=== PATIENT | male | born 1945 | race Caucasian/White ===

== ENCOUNTER 2017-08-19 06:57 | Day surgery (SDC) | payer OTHER, SELFPAY ==
--- NOTE | 2017-08-19 | PATH_ITS ---
[facility] Accession Number: [id number] . 01 Material submitted: . TRANSVERSE COLON POLYP AT 60 . 02 Diagnosis: Biopsy Polyp Transverse Colon at 60 cm: Sessile serrated adenoma involving both biopsy fragments. MRV/08/22/2017 . 02 Electronically signed: . Dale Patterson MD, Pathologist NPI- [id number] . 01 Gross description: . TRANSVERSE COLON POLYP AT 60: Received in formalin are 2 fragment(s) of pickering, soft tissue measuring 0.4 x 0.3 x 0.3 cm to 0.5 x 0.4 x 0.2 cm submitted entirely in 1 cassette(s) /TRC /TRC . 02 Pathologist provided ICD-10: D12.3 . 02 CPT . 106909 Performed at: 01 [facility] [address] [id number] MD Juanjose Thompson MD Phone: [phone] Performed at: 02 [facility] [address] [place], [place] [id number] MD Jose Luis Hazel MD Phone: [phone]
[2017-08-19 07:15] VITALS: BP 141/93; PULSE 79; RESP 16; TEMP 36.4; O2SAT 93; BMI 28.5
[2017-08-19] MEDS: SODIUM CHLORIDE 0.9% 1,000 ML 200 ML IV (07:32)
--- NOTE | 2017-08-19 07:39 | PM.HP.1 ---
History of Present Illness Date Patient Seen: 08/19/17 Time Patient Seen: 07:39 Chief complaint: COLONOSCOPY 22503 Narrative: 72-year-old male with personal history of colon polyps who presents now for colorectal surveillance. His last colonoscopy was 5 years ago. Polyps were removed at that time but are reportedly benign per the patient. He denies any gastrointestinal symptoms recently. No nausea, vomiting, abdominal pain, loss of appetite, unintended weight loss, change in bowel habits, diarrhea, constipation, melena, hematochezia, or bright red blood per rectum. Patient History Medical History Colon polyps (Acute) Coronary artery disease (Acute) History of myocardial infarction (Acute) History of tobacco use (Acute) Hypertension (Acute) Surgical History H/O inguinal hernia repair (Acute) History of colonoscopy (Acute) Status post laminectomy Status post laminectomy Status post laminectomy Family & Social History Social History: household members spouse Meds Home Medications Medication Instructions Recorded Confirmed Type MAGNESIUM OXIDE 250 mg PO Q DAY #0 05/08/12 History aspirin 81 mg PO QDAY #0 05/08/12 08/19/17 History fluticasone 2 spray INTRANASAL HS #1 inh 03/08/17 Rx tadalafil [Cialis] 20 mg PO QDAY PRN 08/19/17 History Allergies Allergy/AdvReac Type Severity Reaction Status Date / Time Sulfa (Sulfonamide AdvReac Mild NAUSEA/VOMI Unverified 05/29/17 12:54 Antibiotics) TING Review of Systems Review of Systems All systems reviewed & are unremarkable except as noted in HPI and below Exam Vital Signs (past 8 hours): - 08/19/17 07:15 Temperature 97.5 F L Pulse Rate 79 Respiratory Rate 16 Blood Pressure 141/93 H Pulse Oximetry 93 Oxygen Delivery Method Room Air Narrative Exam Narrative: Well-nourished well-developed male in no acute distress lying comfortably in the bed. Alert oriented x3 Sclera nonicteric Neck is supple without carotid bruits Chest clear to auscultation bilaterally with regular rate rhythm. No murmurs or rubs Abdomen soft, nondistended, nontender. Extremities show no clubbing, cyanosis, or edema Objective Labs Labs: No recent radiographic or laboratory studies for review Assessment & Plan (1) Personal history of colonic polyps: Current visit: Yes Status: Acute Plan: Assessment/Plan Narrative: 72-year-old male with personal history of colon polyps now requiring surveillance for such. His last colonoscopy was 5 years ago. I have recommended colonoscopy currently. Technical details of the procedure were discussed. Risks, benefits, alternatives were explained. Risks including but not limited to sedation, aspiration, bleeding, pain, missed lesion, incomplete examination, need for further radiographic studies, colonic perforation, need for major abdominal surgery, and all attendant risks of major surgery were explained in detail. All questions were answered to his satisfaction, and he voiced understanding. Consent was placed on the chart. We will proceed as above.
--- NOTE | 2017-08-19 07:44 | PM.PREOP ---
Pre-operative Note Interval Note Pre-op Check: History & Physical Reviewed by Physician, Exam Performed and History & Physical exam performed today H&P completed within 30 days and has changed as indicated here:: Patient seen and examined today. History physical examination placed on the chart. Patient requires colonoscopy for personal history colon polyps. Proceed as planned today with endoscopy. ASA Class (for procedural sedation): II
[2017-08-19] MEDS: MIDAZOLAM 5 MG/5 ML VIAL IV (08:25)
[2017-08-19] MEDS: fentaNYL 250 MCG/5 ML INJ IV (08:26)
--- NOTE | 2017-08-19 08:27 | PM.OP.ENDO ---
Operative Date/Time/Diagnoses - Date of procedure: 08/19/17 Time of procedure: 08:27 Pre-op diagnosis: Personal history of colon polyps Post-op diagnosis: other (Transverse colon polyp and diverticulosis) Procedure & Clinicians Study performed: 1. Sedation per surgeon 2. Colonoscopy with cold forceps polypectomy Same procedure as scheduled: Yes Indications: 72-year-old male with personal history of colon polyps. Last colonoscopy was 5 years ago. He presents now for colorectal surveillance. Colonoscopy is once again recommended. Surgeon: Hai Waddell Procedure Notes SCOAP/Timeout: Yes Procedure in detail: After obtaining informed consent, the patient was brought to the GI suite and placed in the left lateral decubitus position on the examination table. After placement of appropriate monitors, the patient was given incremental doses of Versed and Fentanyl until an appropriate level of sedation was achieved. A time out was held per SCOAP protocol. A digital rectal examination was performed and did not reveal any masses or obstructing lesions. The colonoscope was gently passed into the patient's anus and the entire colon navigated to the level of the cecum with minimal difficulty. Once in the cecum, the scope was withdrawn being sure to go before and beyond all mucosal folds and prominences and get an excellent examination. The findings are noted above. At the level of the rectal vault, the scope was retroflexed and the internal anal canal was examined. The scope was straightened and air aspirated from the colon. The instrument was removed from the patient's body and the procedure was concluded. The patient was allowed to awaken from sedation without difficulty and taken to the post-anesthesia care unit in good condition. Scope withdrawal time: 7:28 min Sedation minutes: 10 Findings: diverticulosis and polyp Specimen(s): other (Transverse colon polyp at 60 cm) Complications: none Recommendations: Colonscopy in 5 years, High fiber diet and Will call with biopsy results Plan for aftercare: 1. Discharged home Follow up: as needed Disposition: PACU
[2017-08-19 08:31] VITALS: BP 123/84; PULSE 67; RESP 14; TEMP 36.3; O2SAT 94
[2017-08-19 08:35] VITALS: BP 102/73; PULSE 64; RESP 15; O2SAT 93
[2017-08-19 08:39] VITALS: BP 107/76; PULSE 75; RESP 16
[2017-08-19 08:47] VITALS: BP 130/88; PULSE 78; RESP 16; TEMP 36.1; O2SAT 96
== END 2017-08-19 08:59 | disposition home or self-care (01) ==
PROVIDERS: Family Provider Internal Medicine; PCP Internal Medicine; Visit Provider Surgery
PROC: 0DJD8ZZ Inspection of Lower Intestinal Tract, Via Natural or Artificial Opening Endoscopic (ICD-10-PCS; CPT 45378; principal; 2017-08-19 07:45)
DX: Z86.010 Personal history of colon polyps (principal); K57.30 Diverticulosis of large intestine without perforation or abscess without bleeding; I25.10 Atherosclerotic heart disease of native coronary artery without angina pectoris; I25.2 Old myocardial infarction; Z87.891 Personal history of nicotine dependence; I10 Essential (primary) hypertension; D12.3 Benign neoplasm of transverse colon
CPT/HCPCS: 45380; 99152; J2250; J3010

== ENCOUNTER → 2019-01-05 10:38 | Outpatient (CLI) | payer OTHER, SELFPAY ==
[2019-01-05 13:44] LABS: Prostate Specific Antigen Scrn 0.614 ng/mL (0.1-4.0)
== END ==
PROVIDERS: Visit Provider Internal Medicine
DX: Z12.5 Encounter for screening for malignant neoplasm of prostate (principal)
CPT/HCPCS: 36415; G0103

== ENCOUNTER → 2019-03-11 09:34 | Outpatient (CLI) | payer MEDICARE, SELFPAY ==
[2019-03-11 10:03] LABS: BUN Creatinine Ratio 16.7 (6-22); Blood Urea Nitrogen 15 mg/dL (9-20); Estimated Glomerular Filt Rate > 60.0 mL/min (>60)
== END ==
PROVIDERS: Visit Provider Urology
DX: N32.3 Diverticulum of bladder (principal)
CPT/HCPCS: 36415; 82565; 84520

== ENCOUNTER → 2019-03-17 11:00 | Outpatient (CLI) | payer MEDICARE, SELFPAY ==
--- NOTE | 2019-03-17 | DI.CT.S_ITS ---
PROCEDURE: CT ABDOMEN PELVIS WO/W CON INDICATIONS: Diverticulum of bladder TECHNIQUE: Optional 5 mm thick noncontrast images acquired from the diaphragm to the symphysis pubis. After the administration of intravenous contrast, 5 mm thick images acquired from the diaphragm to the symphysis pubis after a 10-minute delay. 2 mm thick coronal and sagittal reformats were then performed of the kidneys and ureters. For radiation dose reduction, the following was used: automated exposure control, adjustment of mA and/or kV according to patient size. COMPARISON: None. FINDINGS: Image quality: Excellent. Lung bases: bilateral dependent atelectasis. Heart size is normal. Urinary system: Bilateral simple appearing renal cysts. Both kidneys are normal in size, without hydronephrosis or nephrolithiasis on pre-contrast images. No perinephric fat stranding. There is normal bilateral renal enhancement. Renal calyces appear normal in morphology when filled with contrast. Opacified portions of both ureters demonstrate normal caliber. No bladder calculi. Left posterior bladder diverticulum image 81 series 2 measuring 2 cm. Additional right-sided tiny 5 mm posterior bladder diverticulum seen on image 200/3. Other solid organs: Liver is normal in size and enhancement. Gallbladder negative. Biliary system is non dilated. Pancreas enhances normally. Spleen is normal in size and enhancement. No adrenal nodules. Peritoneum and bowel: Bowel loops demonstrate normal wall thickness and caliber. No free fluid or air. Normal appendix. Incidental colonic diverticulosis. Nodes and vessels: No retroperitoneal or mesenteric adenopathy by size criteria. Aorta and inferior vena cava are normal in size. Abdominal wall: No ventral hernias. Pelvis: No pathologic free pelvic fluid. No inguinal hernias or adenopathy. Bones: No suspicious bony lesions. No vertebral body compression fractures. Diffuse spondylosis and facet arthropathy IMPRESSION: 2 cm left posterior bladder diverticulum. Tiny 5 mm right posterior bladder diverticulum Bilateral simple appearing renal cysts. No urolithiasis or evidence of urinary obstruction Dictated by: Lucho Dow M.D. on 03/17/2019 at 16:26 Approved by: Lucho Dow M.D. on 03/17/2019 at 16:32
== END ==
PROVIDERS: PCP Internal Medicine; Visit Provider Urology
DX: N32.3 Diverticulum of bladder (principal); N28.1 Cyst of kidney, acquired
CPT/HCPCS: 74178; Q9967

== ENCOUNTER → 2020-01-25 16:05 | Outpatient (CLI) | payer MEDICARE, SELFPAY ==
--- NOTE | 2020-01-25 16:07 | DI.RAD.S_ITS ---
PROCEDURE: XR CHEST 2V INDICATIONS: chest pain TECHNIQUE: 2 views of the chest were acquired. COMPARISON: [facility], , CHEST 2 VIEW, 01/01/2008, 11:17. FINDINGS: Surgical changes and devices: None. Mild patchy opacities in both lung bases No pleural effusions or pneumothorax. Mediastinum: Mediastinal contours are normal. Heart size is normal. Bones and chest wall: No suspicious bony abnormalities. Soft tissues appear unremarkable. IMPRESSION: Mild patchy opacities in both lung bases increased since the prior study although no recent chest radiographs available . Findings technically nonspecific although could reflect atelectasis/scarring versus early atypical or viral pneumonia. If there is persistent clinical diagnostic uncertainty, continued surveillance with short interval chest radiographs after treatment is recommended. Dictated by: Lucho Dow M.D. on 01/25/2020 at 16:39 Approved by: Lucho Dow M.D. on 01/25/2020 at 16:41
== END ==
PROVIDERS: PCP Internal Medicine; Referring Provider Internal Medicine; Visit Provider Internal Medicine
DX: R07.9 Chest pain, unspecified (principal)
CPT/HCPCS: 71046

== ENCOUNTER → 2020-02-03 13:02 | Outpatient (CLI) | payer MEDICARE, SELFPAY ==
[2020-02-03 15:34] LABS: COVID19 -Nasal RAPID Negative (Negative)
== END ==
PROVIDERS: PCP Internal Medicine; Visit Provider Physician Assistant
DX: Z01.812 Encounter for preprocedural laboratory examination (principal); Z20.828 Contact with and (suspected) exposure to other viral communicable diseases
CPT/HCPCS: 87635; C9803

== ENCOUNTER → 2020-02-04 09:09 | Outpatient (CLI) | payer MEDICARE, SELFPAY ==
--- NOTE | 2020-02-04 14:39 | PM.TREADMILL ---
Cardiac Stress Test Report Referral & Results Date Patient Seen: 02/04/20 Requesting provider: Akash Patel Indication: Chest pain with exertion Rest ECG: Right bundle branch block, previously identified Procedure Note: Today following both written and verbal informed consent the patient was exercised according to a standard Rudolph protocol patient went for a total of 9 minutes achieving a maximum heart rate of 126 maximum systolic blood pressure of 220. This is approximately 10.1 METS. Exercise was terminated at this point because of targets were met and 2+ chest pain. Patient was also given Cardiolite through a previously started Hep-Lock IV by the diagnostic imaging staff approximately 1 minute prior to the cessation of exercise. There are no notable ST-T segment changes identified beyond his baseline abnormalities on his ECG Patient had fairly classic chest pain symptoms speaking at a 4/10 and resolving to 0 within 2 minutes of cessation of activity in recovery No dysrhythmias Patient hypertensive throughout he did hold his metoprolol Function aerobic impairment rates-30% on the active scale Impression: Very suspicious symptoms for ischemia without evidence on ECG. Weight perfusion imaging as well. Excellent exercise capacity. Hypertensive off meds Please note: Actual ECG tracings can be found in the PACS system.
--- NOTE | 2020-02-04 17:51 | DI.NM.S_ITS ---
DATE OF SERVICE: PROCEDURE PERFORMED: Exercise treadmill stress and rest myocardial perfusion imaging with gating to assess ejection fraction and regional wall motion. ORDERING PROVIDER: Dr. Akash Patel. INDICATIONS: The patient is a 74-year-old male with atypical chest discomfort. EXERCISE TREADMILL TESTING: The patient was able to exercise for 9 minutes on a standard Rudolph protocol suggesting excellent exercise capacity with an HAMLET of - 30%. He had a normal heart rate response to exercise, achieving a maximum heart rate of 126 BPM (85% of his predicted maximum), but a hypertensive blood pressure response with a resting blood pressure of 150/100, increasing to a maximum of 220/118. He had no chest discomfort. His resting ECG shows sinus rhythm with a RBBB with associated ST-segment abnormalities that become slightly accentuated with stress, but are nonspecific because of the baseline abnormality. There were no arrhythmias. At 8 minutes of exercise at a heart rate of 124 BPM, 25.0 millicuries of technetium-99m Myoview was injected and the patient was imaged 15 minutes later. Earlier in the day he had been injected with 11.7 millicuries of technetium-99m Myoview while at rest and was imaged 30 minutes using a gated SPECT acquisition protocol. FINDINGS: 1. Raw data: There is fair myocardial tracer uptake with clear diaphragmatic attenuation noted. Lung/heart ratio was normal at 0.31 with a normal TID ratio 0.94. 2. Quantitated gated SPECT: Post-stress ejection fraction is estimated at 72% without any focal wall motion abnormality and specifically the inferior wall appears to have normal contractility. The resting ejection fraction is 66% with an end-diastolic volume of 110 mL. 3. Myocardial perfusion imaging: Post-stress supine images shows a mild perfusion defect in the inferior wall from apex to base in a pattern that would be consistent with diaphragmatic attenuation, supported by its complete resolution on the prone images. The resting images show a similar perfusion pattern to that of the post-stress supine images, perhaps with some slight improvement, but predominantly fixed. IMPRESSION: 1. Probable normal myocardial perfusion study. 2. Mild, predominantly fixed inferior perfusion defect that completely resolves on prone imaging, most consistent with diaphragmatic attenuation artifact. While previous nontransmural infarction cannot be entirely excluded, the absence of any regional wall motion abnormality would mitigate against this. There is no evidence for any significant myocardial ischemia. 3. Normal left ventricular systolic function without any focal wall motion abnormality. 4. Excellent exercise capacity with a hypertensive blood pressure response to exercise and mild accentuation of baseline ST-segment abnormalities. 5. Compared to the previous myocardial perfusion study of 01/28/2004, a similar perfusion pattern was noted with a partially reversible, but predominantly fixed inferior defect. There was no prone imaging at that time. There has been no significant change. Akash Jane - ADDIE/latrice/jamaal doc#: [id number]/job#: [id number] dd: 02/04/2020 17:03:00 dt: 02/04/2020 17:33:00 DICTATING MD/COPIES TO: Saud Dhillon MD; Akash Patel MD COPIES MNE: PHILIP;
== END ==
PROVIDERS: PCP Internal Medicine; Referring Provider Internal Medicine; Visit Provider Internal Medicine
DX: R07.89 Other chest pain (principal)
CPT/HCPCS: 78452; 93016; 93017; 93018; A9502

== ENCOUNTER → 2020-03-15 09:53 | Outpatient (CLI) | payer MEDICARE, SELFPAY ==
[2020-03-15] MEDS: COVID-19 VACC #1, MRNA(MOD) 100 MCG/0.5 ML VIAL IM (10:04)
== END ==
PROVIDERS: PCP Internal Medicine; Visit Provider Internal Medicine
DX: Z23 Encounter for immunization (principal)
CPT/HCPCS: 0011A; 91301

== ENCOUNTER → 2020-04-12 09:51 | Outpatient (CLI) | payer MEDICARE, SELFPAY ==
[2020-04-12] MEDS: COVID-19 VACC #2, MRNA(MOD) 100 MCG/0.5 ML VIAL IM (10:03)
== END ==
PROVIDERS: PCP Internal Medicine; Visit Provider Internal Medicine
DX: Z23 Encounter for immunization (principal)
CPT/HCPCS: 0012A; 91301

== ENCOUNTER → 2020-04-21 15:02 | Outpatient (CLI) | payer MEDICARE, SELFPAY ==
--- NOTE | 2020-04-21 15:04 | DI.RAD.S_ITS ---
PROCEDURE: XR FOOT RT MIN 3V INDICATIONS: right foot pain, right heel pain TECHNIQUE: 3 views of the foot were acquired. COMPARISON: None. FINDINGS: Bones: No fracture. Plantar and posterior calcaneal spurring. Moderate 1st MTP joint degeneration. Diffuse interphalangeal degenerative joint disease. Soft tissues: No tibiotalar joint effusion. Achilles tendon appears normal. IMPRESSION: Plantar and posterior calcaneal spurring. Dictated by: Lucho Dow M.D. on 04/21/2020 at 15:51 Approved by: Lucho Dow M.D. on 04/21/2020 at 15:55
== END ==
PROVIDERS: PCP Internal Medicine; Referring Provider Internal Medicine; Visit Provider Internal Medicine
DX: M79.671 Pain in right foot (principal); M77.31 Calcaneal spur, right foot
CPT/HCPCS: 73630

== ENCOUNTER → 2021-06-23 07:34 | Outpatient (CLI) | payer MEDICARE, SELFPAY ==
[2021-06-23 08:28] LABS: Alanine Aminotransferase 42 IU/L (<50); Albumin 3.9 g/dL (3.5-5.0); Albumin Globulin Ratio 1.3 (1.0-2.8); Alkaline Phosphatase 49 U/L (38-126); Aspartate Aminotransferase 43 IU/L (17-59); BUN Creatinine Ratio 15.2 (6-22); Bilirubin Total 0.7 mg/dL (0.2-1.3); Blood Urea Nitrogen 16 mg/dL (9-20); Calcium 8.7 mg/dL (8.4-10.2); Carbon Dioxide 23 mmol/L (22-32); Chloride 107 mmol/L (98-107); Cholesterol 144 mg/dL (140-199); Estimated Glomerular Filt Rate > 60 mL/min (>60); Globulin 3.1 g/dL (1.7-4.1); Glucose 102 mg/dL (80-110); HDL Cholesterol 57 mg/dL (40-60); HEMOLYSIS < 15 (0-50); LDL Cholesterol Calculated 66 mg/dL (<100); Potassium 4.6 mmol/L (3.4-5.1); Sodium 139 mmol/L (137-145); Triglycerides 107 mg/dL (35-150)
== END ==
PROVIDERS: PCP Internal Medicine; Referring Provider Internal Medicine; Visit Provider Internal Medicine
DX: I10 Essential (primary) hypertension (principal); Z13.6 Encounter for screening for cardiovascular disorders
CPT/HCPCS: 36415; 80053; 80061

== ENCOUNTER → 2022-01-17 09:35 | Outpatient (CLI) | payer MEDICARE, SELFPAY ==
[2022-01-17 10:47] LABS: COVID19 -Nasal RAPID POSITIVE (Negative)
== END ==
PROVIDERS: PCP Internal Medicine; Visit Provider Surgery
DX: U07.1 COVID-19 (principal)
CPT/HCPCS: 87635; C9803

== ENCOUNTER → 2022-02-26 09:35 | Outpatient (CLI) | payer MEDICARE, SELFPAY ==
[2022-02-26 10:47] LABS: COVID19 -Nasal RAPID Negative (Negative)
== END ==
PROVIDERS: PCP Internal Medicine; Visit Provider Surgery
DX: Z01.812 Encounter for preprocedural laboratory examination (principal); Z20.822 Contact with and (suspected) exposure to COVID-19
CPT/HCPCS: 87635; C9803

== ENCOUNTER 2022-02-27 12:14 | Day surgery (SDC) | payer MEDICARE, SELFPAY ==
--- NOTE | 2022-02-27 | PATH_ITS ---
[facility] Accession Number: [id number] . 01 Material submitted: . cecum - CECUM . 01 Diagnosis: Cecum, Biopsy: Tubular adenoma. MRV 03/01/2022 1444 Local . 01 Electronically signed: . Carol James MD, Pathologist NPI- [id number] . 01 Gross description: . CECUM: Received in formalin is 1 fragment(s) of pickering, soft tissue measuring 0.3 x 0.2 x 0.2 cm submitted entirely in 1 cassette(s) /CPE 02/28/2022 0926 Local . 01 Pathologist provided ICD-10: D12.0 . 01 CPT . 525485 Specimen Comment: A courtesy copy of this report has been sent to [phone] Performed at: 01 [facility] [address] [place] [id number] MD Juanjose Thompson MD Phone: [phone]
[2022-02-27 12:29] VITALS: BP 157/98; PULSE 76; RESP 16; TEMP 36.3; O2SAT 96; BMI 63.2
[2022-02-27] MEDS: LACTATED RINGERS 1,000 ML 200 ML IV (12:40)
--- NOTE | 2022-02-27 12:42 | PM.HP.1 ---
History of Present Illness History of Present Illness Date Patient Seen: 02/27/22 Time Patient Seen: 12:43 Chief complaint: SDC Narrative: The patient presents for colorectal screening. Colonoscopy 2018 demonstrated a benign polyp. No personal or family history of colon cancer. On further history denies any recent gastrointestinal symptoms. No nausea, vomiting, abdominal pain, loss of appetite, unexplained weight loss, change in bowel habits, or blood per rectum. Patient History Medical History Colon polyps Coronary artery disease Erectile dysfunction Hematuria, unspecified (12/25/10) History of myocardial infarction History of tobacco use Hypertension Personal history of colonic polyps RBBB Surgical History H/O inguinal hernia repair History of colonoscopy Status post laminectomy Status post laminectomy Status post laminectomy Family & Social History Social History: household members spouse Tobacco & Substance use: Smoking Status Former smoker alcohol intake current alcohol intake frequency 0-2 drinks per day Substance Use Type does not use Meds Home Medications and Allergies Home Medications Medication Instructions Recorded Confirmed Type MAGNESIUM OXIDE 250 mg PO Q DAY ##0 05/08/12 02/27/22 History aspirin 81 mg tablet,delayed 81 mg PO QDAY ##0 05/08/12 02/27/22 History release fluticasone propionate 50 2 spray intranasal HS #1 inh 01/05/19 02/27/22 Rx mcg/actuation nasal spray,suspension tadalafil 20 mg tablet (Cialis) 20 mg PO QDAY PRN Sexual Activity 06/20/21 02/27/22 Rx #20 tabs metoprolol succinate 50 mg 50 mg PO DAILY #90 tabs 08/10/21 02/27/22 Rx tablet,extended release 24 hr Allergies Allergy/AdvReac Type Severity Reaction Status Date / Time Sulfa (Sulfonamide AdvReac Mild NAUSEA/VOMI Verified 02/27/22 12:23 Antibiotics) TING Exam Vital Signs (past 8 hours): - 02/27/22 12:29 Temperature 97.4 F L Pulse Rate 76 Respiratory Rate 16 Blood Pressure 157/98 H Pulse Oximetry 96 Oxygen Delivery Method Room Air Oxygen Flow Rate 0 Oxygen Delivery Method Room Air Oxygen Flow Rate 0 Narrative Exam Narrative: General adult man alert oriented no acute distress Abdomen soft nontender nondistended Assessment & Plan Assessment and plan (1) Personal history of colonic polyps: Status: Acute Assessment & Plan narrative: The patient requires colorectal screening and colonoscopy is recommended. Technical details were discussed. Risks, benefits, alternatives explained. Risks including but not limited to myocardial infarction, aspiration, bleeding, pain, missed lesion, incomplete examination, need for further radiographic studies, colonic perforation, and need for major abdominal surgery were discussed. All questions were answered to their satisfaction, and they are in agreement with this plan. Time Spent With Patient Critical Care time: I spent a total of [] minutes of critical care time on this patient's care today; this time is exclusive of procedural time.
--- NOTE | 2022-02-27 13:02 | PM.OP.COLON ---
Operative Date/Time/Diagnoses Date of procedure: 02/27/22 Time of procedure: 13:02 Pre-op diagnosis: Personal history of colonic polyps Post-op diagnosis: same Procedure & Clinicians Study performed: Colonoscopy Same procedure as scheduled: Yes Indications: Personal history of colonic polyps Surgeon: Hugh Nicolas Procedure Notes Procedure in detail: The history and physical was performed/updated and the patient is ASA class is 2. The procedure was discussed in detail with the patient. Potential risks complications including infection, bleeding, missed diagnosis, perforation, need for surgery, and were explained. Their questions were answered and informed consent was obtained. Patient was brought to the procedure room and placed standard monitoring equipment. The patient's vital signs were monitored continuously throughout the entire procedure. Prior to starting time-out was performed. The patient was placed in the left lateral recumbent position. Procedural sedation was administered by anesthesia. Examination began with a thorough inspection of the perianal area there was no evidence of fissures, fistulae, external hemorrhoids or cutaneous malignancy. The colonoscopy scope was then placed into the anal canal and was advanced to the cecum, which was identified by the ileocecal valve, the appendiceal orifice and the confluence of the taenia. The scope was then slowly withdrawn examining colon thoroughly in all directions, irrigating it of any residual stool. FINDINGS 1. Cecum-3 mm polyp removed with biopsy forceps 2. Sigmoid/descending-extensive diverticulosis The patient tolerated the procedure well. They will be discharged once criteria are met. The prep was of fair quality. The withdrawl time was 8 minutes. Specimen(s): other (Cecal polyp) Complications: none Impression: Colonic polyp Post-procedure Recommendations: High fiber diet Plan for aftercare: Follow-up dependent on pathology findings Disposition: same day surgery
[2022-02-27 13:26] VITALS: BP 128/63; PULSE 59; RESP 16; TEMP 36.6; O2SAT 98
[2022-02-27 13:31] VITALS: BP 128/80; PULSE 57; RESP 18; O2SAT 95
[2022-02-27 13:36] VITALS: BP 139/84; PULSE 57; RESP 15; O2SAT 95
[2022-02-27 13:49] VITALS: BP 159/98; PULSE 58; RESP 13; TEMP 36.3; O2SAT 99
--- NOTE | 2022-02-27 14:10 | SUR.PHASEII ---
1410: Pt A&Ox4, denies any distress, VSS, ready and desires to discharge home. Discharge instructions reviewed with patient with time allowed for questions. IV DC'd intact. Pt left unit via W/C to ER entrance where spouse will transport pt home.
== END 2022-02-27 14:12 | disposition home or self-care (01) ==
PROVIDERS: PCP Internal Medicine; Referring Provider Surgery; Visit Provider Surgery
PROC: 0DJD8ZZ Inspection of Lower Intestinal Tract, Via Natural or Artificial Opening Endoscopic (ICD-10-PCS; CPT 45378; principal; 2022-02-27 13:15)
DX: Z12.11 Encounter for screening for malignant neoplasm of colon (principal); Z86.010 Personal history of colon polyps; K57.30 Diverticulosis of large intestine without perforation or abscess without bleeding; D12.0 Benign neoplasm of cecum
CPT/HCPCS: 45380; J2704

== ENCOUNTER → 2022-07-12 14:18 | Outpatient (CLI) | payer MEDICARE, SELFPAY ==
[2022-07-12 15:10] LABS: Alanine Aminotransferase 51 IU/L (<50); Albumin Globulin Ratio 1.4 (1.0-2.8); Alkaline Phosphatase 53 U/L (38-126); Aspartate Aminotransferase 38 IU/L (17-59); Bilirubin Total 0.5 mg/dL (0.2-1.3); Blood Urea Nitrogen 19 mg/dL (9-20); Calcium 8.8 mg/dL (8.4-10.2); Carbon Dioxide 26 mmol/L (22-32); Chloride 104 mmol/L (98-107); Estimated Glomerular Filt Rate > 60 mL/min (>60); Globulin 2.9 g/dL (1.7-4.1); Glucose 114 mg/dL (80-110); HEMOLYSIS < 15 (0-50); Potassium 4.2 mmol/L (3.4-5.1); Sodium 137 mmol/L (137-145); Total Protein 6.9 g/dL (6.3-8.2)
[2022-07-12 15:37] LABS: Carcinoembryonic Antigen 2.1 ng/mL (0.1-3.0)
[2022-07-12 15:38] LABS: TSH w/ Reflex to FT4 2.16 uIU/mL (0.47-4.68)
[2022-07-12 16:29] LABS: Erythrocyte Sedimentation Rate 3 MM/HR (0-15)
== END ==
PROVIDERS: PCP Internal Medicine; Referring Provider Internal Medicine; Visit Provider Internal Medicine
DX: E04.9 Nontoxic goiter, unspecified (principal); I10 Essential (primary) hypertension; R31.9 Hematuria, unspecified
CPT/HCPCS: 36415; 80053; 82378; 84443; 85651

== ENCOUNTER → 2022-07-20 13:21 | Outpatient (CLI) | payer MEDICARE, SELFPAY ==
--- NOTE | 2022-07-20 13:22 | DI.CT.S_ITS ---
PROCEDURE: CT SOFT TISSUE NECK W CON INDICATIONS: Neck swelling TECHNIQUE: After the administration of intravenous contrast, 3.0 mm axial sections acquired from the sella to the aortic arch. Additional oblique axial 3.0 mm sections acquired through the pharynx. 3 mm thick coronal and sagittal reformats were generated. For radiation dose reduction, the following was used: automated exposure control. COMPARISON: None. FINDINGS: Image quality: Excellent. Lymph nodes: No enlarged lymph nodes seen throughout the neck. Vessels: Visualized vasculature appears patent. Neck spaces: The oropharynx, nasopharynx, and pharynx demonstrate no mucosal lesions. The vocal cords, false vocal cords, pyriform sinuses, epiglottis, vallecula, and tongue base all appear normal. Extramucosal spaces appear unremarkable. Glands: The parotid and submandibular glands appear normal. Thyroid gland is unremarkable. Miscellaneous: Visualized brain and orbits appear normal. Lung apices appear clear. Superficial soft tissues appear normal. There is occlusion of the right maxillary sinus with moderate mucosal thickening on the left. Scattered frontal and ethmoid mucosal thickening are present. Bones: No suspicious bony lesions. Visualized sinuses and mastoids appear unremarkable. IMPRESSION: No abnormality at area of palpable concern. No adenopathy. Prominent maxillary sinus disease. Dictated by: Shaina Lama M.D. on 07/20/2022 at 16:44 Approved by: Shaina Lama M.D. on 07/20/2022 at 16:45
== END ==
PROVIDERS: PCP Internal Medicine; Referring Provider Internal Medicine; Visit Provider Internal Medicine
DX: R22.1 Localized swelling, mass and lump, neck (principal); J32.9 Chronic sinusitis, unspecified
CPT/HCPCS: 70491; Q9967

== ENCOUNTER → 2023-07-12 15:16 | Outpatient (CLI) | payer MEDICARE, SELFPAY ==
[2023-07-12 16:55] LABS: Alanine Aminotransferase 39 IU/L (<50); Albumin 4.3 g/dL (3.5-5.0); Albumin Globulin Ratio 1.4 (1.0-2.8); Alkaline Phosphatase 68 U/L (38-126); Aspartate Aminotransferase 32 IU/L (17-59); BUN Creatinine Ratio 18.8 (6-22); Bilirubin Total 0.7 mg/dL (0.2-1.3); Blood Urea Nitrogen 18 mg/dL (9-20); Carbon Dioxide 23 mmol/L (22-32); Chloride 105 mmol/L (98-107); Estimated Glomerular Filt Rate > 60 mL/min (>60); Glucose 100 mg/dL (80-110); HEMOLYSIS < 15 (0-50); Potassium 4.2 mmol/L (3.4-5.1); Sodium 138 mmol/L (137-145); Total Protein 7.3 g/dL (6.3-8.2)
== END ==
PROVIDERS: PCP Internal Medicine; Referring Provider Internal Medicine; Visit Provider Internal Medicine
DX: I10 Essential (primary) hypertension (principal)
CPT/HCPCS: 36415; 80053

== ENCOUNTER → 2024-11-04 13:24 | Outpatient (CLI) | payer MEDICARE, SELFPAY ==
[2024-11-04 15:01] LABS: Alanine Aminotransferase 50 IU/L (<50); Albumin 4.2 g/dL (3.5-5.0); Albumin Globulin Ratio 1.4 (1.0-2.8); Alkaline Phosphatase 62 U/L (38-126); Blood Urea Nitrogen 16 mg/dL (9-20); Calcium 9.0 mg/dL (8.4-10.2); Carbon Dioxide 23 mmol/L (22-32); Chloride 105 mmol/L (98-107); Estimated Glomerular Filt Rate > 60 mL/min (>60); Globulin 3.0 g/dL (1.7-4.1); Glucose 103 mg/dL (70-99); HEMOLYSIS < 15 (0-50); Potassium 4.3 mmol/L (3.4-5.1); Sodium 138 mmol/L (137-145); Total Protein 7.2 g/dL (6.3-8.2)
== END ==
PROVIDERS: PCP Internal Medicine; Referring Provider Physician Assistant; Visit Provider Physician Assistant
DX: Z12.5 Encounter for screening for malignant neoplasm of prostate (principal); I10 Essential (primary) hypertension
CPT/HCPCS: 36415; 80053; G0103